=== PATIENT | female | born 1955 | race Caucasian/White ===

== ENCOUNTER 2023-10-14 14:39 | Emergency (ER) | payer MEDICARE, OTHER ==
[~2023-10-14] VITALS: Ht 157.5 cm; Wt 70.3 kg
[~2023-10-14 14:39] MED LIST: DOXY100T2 GT
[2023-10-14 15:31] LABS: BASOPHILS # (AUTO) 0.1 K/uL (0.0-0.2); BASOPHILS % (AUTO) 0.7 % (0.0-2.0); EOSINOPHILS # (AUTO) 0.5 K/uL (0.0-0.7); EOSINOPHILS % (AUTO) 5.5 % (0.0-6.0); HEMATOCRIT 27 % (33-45); HEMOGLOBIN 8.7 g/dL (11.5-14.8); LYMPHOCYTES # (AUTO) 2.9 K/uL (0.8-4.8); LYMPHOCYTES % (AUTO) 31.9 % (20.0-44.0); MEAN CORPUSCULAR HEMOGLOBIN 28 PG (26.0-33.0); MEAN CORPUSCULAR HGB CONC 32 g/dl (31.0-36.0); MEAN CORPUSCULAR VOLUME 87 fL (82-100); MONOCYTES # (AUTO) 0.6 K/uL (0.1-1.30); MONOCYTES % (AUTO) 6.8 % (2.0-12.0); NEUTROPHILS # (AUTO) 4.9 K/uL (1.8-8.9); NEUTROPHILS % (AUTO) 55.1 % (43.0-81.0); PLATELET COUNT (AUTO) 557 K/uL (150-450); RED BLOOD CELL COUNT(AUTO) 3.15 MIL/uL (4.0-5.2); RED CELL DISTRIBUTION WIDTH 17.2 % (11.5-15.0)
[2023-10-14 15:42] LABS: CALCIUM, SERUM 9.4 mg/dL (8.5-10.1); CREATININE 0.8 mg/dL (0.6-1.3); POTASSIUM 4.3 mmol/L (3.5-5.1)
[2023-10-14 15:46] LABS: INR 1.03 (0.91-1.10); PARTIAL THROMBOPLASTIN TIME 26.3 SEC (24.3-34.3); PROTHROMBIN TIME 10.6 SECS (9.2-11.1)
[2023-10-14] MEDS ORDERED: IPRA4AER IH ×2 (17:47)
[2023-10-14] MEDS ORDERED: DOCU100C36 GT (17:47)
[2023-10-14] MEDS ORDERED: MULT-213 GT (17:47)
[2023-10-14] MEDS ORDERED: ASPI-1169 GT (17:47)
[2023-10-14] MEDS ORDERED: MAGN400O6 GT (17:47)
[2023-10-14] MEDS ORDERED: LACT100027 PO (17:47)
[2023-10-14] MEDS ORDERED: SERT25TA GT (17:47)
[2023-10-14] MEDS ORDERED: FERR220E2 GT (17:47)
[2023-10-14] MEDS ORDERED: ALEN70SO3 GT (17:47)
[2023-10-14] MEDS ORDERED: POLY15DR31 EACHEYE (17:47)
[2023-10-14] MEDS ORDERED: VALP250S22 GT (17:47)
[2023-10-14] MEDS ORDERED: NA P133E RC (17:47)
[2023-10-14] MEDS ORDERED: METO25TA6 GT (17:47)
[2023-10-14] MEDS ORDERED: GABA-532 GT (17:47)
[2023-10-14] MEDS ORDERED: OMEGA-3 FATTY ACIDS GT (17:47)
[2023-10-14] MEDS ORDERED: SENN-261 GT (17:47)
[2023-10-14] MEDS ORDERED: DIPH25TA62 GT (17:47)
[2023-10-14] MEDS ORDERED: FAMO20TA8 GT (17:47)
[2023-10-14] MEDS ORDERED: LEVO200T8 GT (17:47)
[2023-10-14] MEDS ORDERED: CHOL100043 GT (17:47)
[2023-10-14] MEDS ORDERED: CRAN425C6 GT (17:47)
[2023-10-14] MEDS ORDERED: CLOB15CR4 TP (17:47)
[2023-10-14] MEDS ORDERED: VITS42.53 TP (17:47)
[2023-10-14] MEDS ORDERED: QUET50TA GT (17:47)
[2023-10-14] MEDS ORDERED: ATOR20TA GT (17:47)
[2023-10-14] MEDS ORDERED: LEVE100S GT (17:47)
[2023-10-14] MEDS ORDERED: ACET-637 GT (17:47)
[2023-10-14] MEDS ORDERED: CHLO473M5 PO (17:47)
[2023-10-14] MEDS ORDERED: BISA10SU11 RC (17:47)
[2023-10-14] MEDS ORDERED: ACET325T53 GT ×2 (17:47)
[2023-10-14 18:13] VITALS: BP 134/81; TEMP 98.6; O2SAT 100
== END 2023-10-14 19:12 | disposition short-term general hospital (02) ==
LOC: ER 14:43
DX: S42.492A Other displaced fracture of lower end of left humerus, initial encounter for closed fracture (principal); R56.9 Unspecified convulsions; I10 Essential (primary) hypertension; K21.9 Gastro-esophageal reflux disease without esophagitis; Z87.09 Personal history of other diseases of the respiratory system; X58.XXXA Exposure to other specified factors, initial encounter; Y93.89 Activity, other specified; Y92.89 Other specified places as the place of occurrence of the external cause; Y99.8 Other external cause status
CPT/HCPCS: 36415; 71045-TC; 73060-TC; 73070-TC; 73090-TC; 80048-TC; 85025-TC; 85730-TC; 86850-TC

== ENCOUNTER 2025-01-21 12:45 | Emergency (ER) | payer MEDICARE, OTHER ==
[~2025-01-21] VITALS: Ht 165.1 cm; Wt 65.8 kg
[~2025-01-21 12:45] MED LIST changes: +ACET-637 GT; +ACET325T53 GT; +ALEN70SO3 GT; +ASPI-1169 GT; +ATOR20TA GT; +BISA10SU11 RC; +CHLO473M5 PO; +CHOL100043 GT; +CLOB15CR4 TP; +CRAN425C6 GT; +DIPH25TA62 GT; +DOCU100C36 GT; +FAMO20TA8 GT; +FERR220E2 GT; +GABA-532 GT; +IPRA4AER IH; +LACT100027 PO; +LEVE100S GT; +LEVO200T8 GT; +MAGN400O6 GT; +METO25TA6 GT; +MULT-213 GT; +NA P133E RC; +OMEGA-3 FATTY ACIDS GT; +POLY15DR31 EACHEYE; +QUET50TA GT; +SENN-261 GT; +SERT25TA GT; +VALP250S22 GT; +VITS42.53 TP
[2025-01-21 12:49] VITALS: TEMP 97.9
[2025-01-21 14:34] LABS: PLATELET COUNT (AUTO) 323 K/uL (150-450); RED BLOOD CELL COUNT(AUTO) 3.89 MIL/uL (4.0-5.2); RED CELL DISTRIBUTION WIDTH 14.0 % (11.5-15.0); WHITE BLOOD COUNT (AUTO) 8.1 K/uL (4.3-11.0)
[2025-01-21 14:41] LABS: CALCIUM, SERUM 9.5 mg/dL (8.5-10.1); CREATININE 0.6 mg/dL (0.6-1.3); SODIUM SERUM 138.0 mmol/L (136-145); UREA NITROGEN, BLOOD 21.0 mg/dL (7-18)
[2025-01-21 16:00] VITALS: BP 122/66; O2SAT 97
== END 2025-01-21 17:50 ==
LOC: ER 12:54
DX: G24.5 Blepharospasm (principal); G40.909 Epilepsy, unspecified, not intractable, without status epilepticus; I10 Essential (primary) hypertension; K21.9 Gastro-esophageal reflux disease without esophagitis; Z79.890 Hormone replacement therapy; Z79.899 Other long term (current) drug therapy
CPT/HCPCS: 36415; 71045-TC; 80048-TC; 84484-TC; 85025-TC